=== PATIENT | female | born 1950 | race Two or more races ===

== ENCOUNTER 2021-02-23 10:32 | Outpatient (CLI) | payer OTHER | END 2021-02-23 10:43 | disposition home or self-care (01) | LOC: MRI 10:32 | DX: M48.07 Spinal stenosis, lumbosacral region (principal); S32.010A Wedge compression fracture of first lumbar vertebra, initial encounter for closed fracture | CPT/HCPCS: 72148 ==

== ENCOUNTER 2023-12-20 06:45 | Outpatient (CLI) | payer OTHER ==
[2023-12-20 08:07] LABS: HEMATOCRIT 36.3 % (36.0-45.00); HEMOGLOBIN 12.7 g/dL (12.0-15.00); MEAN CELL VOLUME 99.5 fL (80.00-100.00); MEAN CORPUSCULAR HEMOGLOBIN 34.7 pg (27.00-32.0); MEAN CORPUSCULAR HGB CONC 34.9 g/dl (32.0-36.0); PLATELET COUNT 165 K/uL (150-450); RED BLOOD COUNT 3.65 M/uL (4.00-6.00); RED CELL DISTRIBUTION WIDTH 13.2 % (11.5-14.5)
[2023-12-20 09:03] LABS: ALBUMIN 3.6 gm/dL (3.4-5.0); BILIRUBIN TOTAL 0.39 mg/dL (0.3-1.2); CALCIUM 8.4 mg/dL (8.5-10.1); CREATININE SERUM 1.32 mg/dL (0.55-1.02); FERRITIN 110.9 NG/ML (8-252); GFR 39.45; GLOBULINA 4.8 G/DL (2.4-3.5); POTASSIUM 3.79 mEq/L (3.5-5.1); TOTAL PROTEIN 8.4 gm/dL (6.4-8.2); TSH 0.543 uIU/mL (0.358-3.74)
[2023-12-20 09:08] LABS: T4 FREE 1.91 NG/ML (0.76-1.46)
[2023-12-20 12:53] LABS: MANUAL PLATELET COUNT 390
[2023-12-20 12:54] LABS: PLATELET ESTIMATE NORMAL (NORMAL)
[2023-12-20 13:36] LABS: FOLIC ACID 7.28 ng/ml (4.78-20)
== END 2023-12-20 06:49 | disposition home or self-care (01) ==
LOC: LAB 06:45
PROVIDERS: ATTEND Internal Medicine Hematology & Oncology
DX: C73 Malignant neoplasm of thyroid gland (principal); Z80.3 Family history of malignant neoplasm of breast; N60.81 Other benign mammary dysplasias of right breast; N60.21 Fibroadenosis of right breast; D68.8 Other specified coagulation defects; I10 Essential (primary) hypertension; E78.2 Mixed hyperlipidemia; E03.8 Other specified hypothyroidism; F33.9 Major depressive disorder, recurrent, unspecified; K29.70 Gastritis, unspecified, without bleeding; Z86.010 Personal history of colon polyps; D50.8 Other iron deficiency anemias; R79.9 Abnormal finding of blood chemistry, unspecified; R74.02 Elevation of levels of lactic acid dehydrogenase [LDH]; K76.89 Other specified diseases of liver; C56.9 Malignant neoplasm of unspecified ovary; R97.8 Other abnormal tumor markers

== ENCOUNTER 2023-12-20 07:38 | Outpatient (CLI) | payer OTHER | END 2023-12-20 07:44 | disposition home or self-care (01) | LOC: TOM 07:38 | PROVIDERS: ATTEND Internal Medicine Hematology & Oncology | DX: C73 Malignant neoplasm of thyroid gland (principal); M17.11 Unilateral primary osteoarthritis, right knee; Z80.3 Family history of malignant neoplasm of breast; N60.81 Other benign mammary dysplasias of right breast; N60.21 Fibroadenosis of right breast; D68.8 Other specified coagulation defects; I10 Essential (primary) hypertension; E78.2 Mixed hyperlipidemia; E03.8 Other specified hypothyroidism; F33.9 Major depressive disorder, recurrent, unspecified; K29.70 Gastritis, unspecified, without bleeding; Z86.010 Personal history of colon polyps ==

== ENCOUNTER 2024-02-03 08:04 | Outpatient (CLI) | payer OTHER ==
[2024-02-03 09:15] LABS: HEMATOCRIT 34.8 % (36.0-45.00); MEAN CELL VOLUME 98.5 fL (80.00-100.00); MEAN CORPUSCULAR HEMOGLOBIN 33.9 pg (27.00-32.0); MEAN CORPUSCULAR HGB CONC 34.4 g/dl (32.0-36.0); PLATELET COUNT 188 K/uL (150-450); RED BLOOD COUNT 3.53 M/uL (4.00-6.00); RED CELL DISTRIBUTION WIDTH 13.2 % (11.5-14.5)
[2024-02-03 09:53] LABS: ALBUMIN 3.4 gm/dL (3.4-5.0); BILIRUBIN TOTAL 0.46 mg/dL (0.3-1.2); CALCIUM 9.7 mg/dL (8.5-10.1); CREATININE SERUM 1.59 mg/dL (0.55-1.02); GFR 31.82; GLOBULINA 4.6 G/DL (2.4-3.5); POTASSIUM 3.59 mEq/L (3.5-5.1)
[2024-02-04 11:11] LABS: kappa lambda r 11.14 (0.26-1.65); kappa light 105.8 mg/L (3.3-19.4); lambda light 9.5 mg/L (5.7-26.3)
[2024-02-05 17:09] LABS: BETA-2-MICROGLOBULINA 3.8 mg/L (0.6-2.4)
[2024-02-09 17:06] LABS: IMM A 36 mg/dL (64-422); IMM G 2486 mg/dL (586-1602); IMM M 81 mg/dL (26-217); a:g ratio 0.9 (0.7-1.7); alpha 1 g 0.3 g/dL (0.0-0.4); alpha 2 0.7 g/dL (0.4-1.0); beta g 2.6 g/dL (0.7-1.3); gamma g 0.5 g/dL (0.4-1.8); globulin t 4.1 g/dL (2.2-3.9); m spike 1.7 g/dL (Not Observed); prot total 7.6 g/dL (6.0-8.5)
== END 2024-02-03 08:16 | disposition home or self-care (01) ==
LOC: LAB 08:04
PROVIDERS: ATTEND Internal Medicine Hematology & Oncology
DX: C73 Malignant neoplasm of thyroid gland (principal); Z80.3 Family history of malignant neoplasm of breast; N18.32 Chronic kidney disease, stage 3b; N60.81 Other benign mammary dysplasias of right breast; I10 Essential (primary) hypertension; E78.2 Mixed hyperlipidemia; E03.8 Other specified hypothyroidism; F33.9 Major depressive disorder, recurrent, unspecified; K29.70 Gastritis, unspecified, without bleeding; Z86.010 Personal history of colon polyps; D51.3 Other dietary vitamin B12 deficiency anemia; D50.8 Other iron deficiency anemias; R74.02 Elevation of levels of lactic acid dehydrogenase [LDH]; K76.89 Other specified diseases of liver; C90.00 Multiple myeloma not having achieved remission; D47.2 Monoclonal gammopathy

== ENCOUNTER 2024-02-03 08:41 | Outpatient (CLI) | payer OTHER | END 2024-02-03 08:44 | disposition home or self-care (01) | LOC: RAD 08:41 | PROVIDERS: ATTEND Internal Medicine Hematology & Oncology | DX: D47.2 Monoclonal gammopathy (principal); N18.32 Chronic kidney disease, stage 3b; D63.1 Anemia in chronic kidney disease; C73 Malignant neoplasm of thyroid gland; N60.81 Other benign mammary dysplasias of right breast; N60.21 Fibroadenosis of right breast; D68.8 Other specified coagulation defects; I10 Essential (primary) hypertension; E78.2 Mixed hyperlipidemia; E03.8 Other specified hypothyroidism; F33.9 Major depressive disorder, recurrent, unspecified; K29.70 Gastritis, unspecified, without bleeding; Z86.010 Personal history of colon polyps; D51.3 Other dietary vitamin B12 deficiency anemia; Z80.3 Family history of malignant neoplasm of breast ==

== ENCOUNTER → 2024-04-20 08:42 | Outpatient (CLI) | payer OTHER ==
[2024-04-20 09:27] LABS: HEMATOCRIT 38.1 % (36.0-45.00); HEMOGLOBIN 13.3 g/dL (12.0-15.00); MEAN CELL VOLUME 98.4 fL (80.00-100.00); MEAN CORPUSCULAR HEMOGLOBIN 34.3 pg (27.00-32.0); MEAN CORPUSCULAR HGB CONC 34.9 g/dl (32.0-36.0); PLATELET COUNT 190 K/uL (150-450); RED BLOOD COUNT 3.87 M/uL (4.00-6.00); RED CELL DISTRIBUTION WIDTH 13.8 % (11.5-14.5)
[2024-04-20 09:36] LABS: URINE APPEARANCE Clear; URINE BILIRRUBIN Negative (NEGATIVE); URINE BLOOD Negative; URINE COLOR Yellow; URINE GLUCOSE Negative (NEGATIVE); URINE KETONE Negative (NEGATIVE); URINE LEUKOCYTE Negative; URINE NITRATE Negative; URINE PROTEIN Negative (NEGATIVE)
[2024-04-20 09:38] LABS: URINE EPITHELIAL CELLS 29.7 uL (0.0-38.8); URINE WBC 8.4 uL (0.0-23.2)
[2024-04-20 09:52] LABS: URINE CAST 0.45 uL (0.0-1.40); URINE RBC 1.5 uL (0.0-20.8)
[2024-04-20 10:02] LABS: CREATININE URINE RANDOM 62.2 MG/DL (30-125)
[2024-04-20 11:05] LABS: VITAMIN D3 25 HYDROXY 50.98 ng/ml (30-120)
[2024-04-20 11:11] LABS: ALBUMIN 3.8 gm/dL (3.4-5.0); BILIRUBIN TOTAL 0.66 mg/dL (0.3-1.2); CALCIUM 9.2 mg/dL (8.5-10.1); CHOL HDL RATIO 3.6 (0-5.0); CREATININE SERUM 1.19 mg/dL (0.55-1.02); GFR 44.46; GLOBULINA 4.6 G/DL (2.4-3.5); POTASSIUM 3.19 mEq/L (3.5-5.1); TOTAL PROTEIN 8.4 gm/dL (6.4-8.2)
[2024-04-20 11:40] LABS: TSH 0.201 uIU/mL (0.358-3.74)
[2024-04-20 11:57] LABS: FOLIC ACID > 20.00 ng/ml (4.78-20)
== END | disposition home or self-care (01) ==
LOC: LAB 08:42
PROVIDERS: ATTEND Internal Medicine Hematology & Oncology
DX: C90.00 Multiple myeloma not having achieved remission (principal); Z80.3 Family history of malignant neoplasm of breast; D68.61 Antiphospholipid syndrome; N18.32 Chronic kidney disease, stage 3b; D63.1 Anemia in chronic kidney disease; C73 Malignant neoplasm of thyroid gland; N60.81 Other benign mammary dysplasias of right breast; N60.21 Fibroadenosis of right breast; D68.8 Other specified coagulation defects; I10 Essential (primary) hypertension; E78.2 Mixed hyperlipidemia; E03.8 Other specified hypothyroidism; F33.9 Major depressive disorder, recurrent, unspecified; K29.70 Gastritis, unspecified, without bleeding; D51.3 Other dietary vitamin B12 deficiency anemia; D50.8 Other iron deficiency anemias; R74.02 Elevation of levels of lactic acid dehydrogenase [LDH]; K76.89 Other specified diseases of liver; E55.9 Vitamin D deficiency, unspecified; M18.0 Bilateral primary osteoarthritis of first carpometacarpal joints; I12.9 Hypertensive chronic kidney disease with stage 1 through stage 4 chronic kidney disease, or unspecified chronic kidney disease; R80.8 Other proteinuria

== ENCOUNTER 2024-04-20 09:24 | Outpatient (CLI) | payer OTHER | END 2024-04-20 09:34 | disposition home or self-care (01) | LOC: RAD 09:24 | PROVIDERS: ATTEND Internal Medicine Hematology & Oncology | DX: C90.00 Multiple myeloma not having achieved remission (principal); Z80.3 Family history of malignant neoplasm of breast; D68.61 Antiphospholipid syndrome; D63.1 Anemia in chronic kidney disease; C73 Malignant neoplasm of thyroid gland; N60.81 Other benign mammary dysplasias of right breast; N60.21 Fibroadenosis of right breast; D68.8 Other specified coagulation defects; I10 Essential (primary) hypertension; E78.2 Mixed hyperlipidemia; E03.8 Other specified hypothyroidism; F33.9 Major depressive disorder, recurrent, unspecified; K29.70 Gastritis, unspecified, without bleeding; D51.3 Other dietary vitamin B12 deficiency anemia ==